=== PATIENT | female | born 1955 | race Hispanic/Latino ===

== ENCOUNTER → 2022-09-05 | Outpatient (CLI) | payer MEDICARE ==
[2022-09-05 13:16] LABS: ALBUMIN 3.7 g/dL (3.5-5.0); CREATININE 0.8 mg/dL (0.5-1.5); POTASSIUM 4.4 mmol/L (3.5-5.1)
== END | disposition home or self-care (01) ==
LOC: LAB 08:59
PROVIDERS: ATTEND Internal Medicine Cardiovascular Disease
DX: I10 Essential (primary) hypertension (principal)
CPT/HCPCS: 36415; 80053

== ENCOUNTER → 2022-09-21 | Outpatient (CLI) | payer MEDICARE ==
[~2022-09-21] MED LIST: IOHEXOL 350 MG/ML 100ML INFUS..BTL IV ONE
== END | disposition home or self-care (01) ==
LOC: EDUNIT# 07-18 11:30 → RAH 10:55
PROVIDERS: ATTEND Internal Medicine Cardiovascular Disease
DX: I10 Essential (primary) hypertension (principal)
CPT/HCPCS: 74175; Q9967

== ENCOUNTER → 2023-06-13 | Outpatient (CLI) | payer MEDICARE ==
[~2023-06-13] MED LIST changes: -IOHEXOL 350 MG/ML 100ML INFUS..BTL IV ONE; +REGADENOSON 0.4 MG/5 ML PF SYG IVP ONE
== END | disposition home or self-care (01) ==
LOC: SHCH 08:46
PROVIDERS: ATTEND Internal Medicine Cardiovascular Disease
DX: I10 Essential (primary) hypertension (principal); R06.09 Other forms of dyspnea
CPT/HCPCS: 78452; 96374; 93017; J2785; A9500 ×2

== ENCOUNTER → 2024-01-23 | Outpatient (CLI) | payer MEDICARE, MEDICAID ==
[2024-01-23 12:28] LABS: ALBUMIN 3.6 g/dL (3.5-5.0); BILIRUBIN,TOTAL 0.5 mg/dL (0.2-1.0); CREATININE 0.7 mg/dL (0.5-1.0); MAGNESIUM 2.1 mg/dL (1.80-2.40); POTASSIUM 4.2 mmol/L (3.5-5.1); T4 (THYROXINE) 9.6 ug/dL (4.7-13.3); THYROID STIMULATING HORMONE 2.55 uIU/mL (0.36-3.74); TOTAL PROTEIN, SERUM 7.1 g/dL (6.0-8.3)
== END | disposition home or self-care (01) ==
LOC: LAB 08:24
PROVIDERS: ATTEND Internal Medicine Cardiovascular Disease
DX: I10 Essential (primary) hypertension (principal); R06.00 Dyspnea, unspecified
CPT/HCPCS: 36415; 80053; 83735; 83880; 84436; 84443; 84479

== ENCOUNTER → 2024-01-31 | Outpatient (CLI) | payer MEDICARE, MEDICAID ==
[~2024-01-31] MED LIST changes: +METOPROLOL TARTRATE 1 MG/ML 5ML VIAL IV ONE; -REGADENOSON 0.4 MG/5 ML PF SYG IVP ONE
== END | disposition home or self-care (01) ==
LOC: RAH 11:20
PROVIDERS: ATTEND Internal Medicine Cardiovascular Disease
DX: K44.9 Diaphragmatic hernia without obstruction or gangrene (principal); R07.9 Chest pain, unspecified; M47.815 Spondylosis without myelopathy or radiculopathy, thoracolumbar region
CPT/HCPCS: 75574; J3490

== ENCOUNTER → 2024-02-21 | Outpatient (CLI) | payer MEDICARE, MEDICAID | END | disposition home or self-care (01) | LOC: SHCH 13:21 | PROVIDERS: ATTEND Internal Medicine Cardiovascular Disease | DX: R07.9 Chest pain, unspecified (principal); I73.9 Peripheral vascular disease, unspecified; I65.23 Occlusion and stenosis of bilateral carotid arteries | CPT/HCPCS: 93880; 93925 ==

== ENCOUNTER → 2024-03-30 | Outpatient (CLI) | payer MEDICARE | END | disposition home or self-care (01) | LOC: SHCH 13:37 | PROVIDERS: ATTEND Internal Medicine Cardiovascular Disease | DX: I87.2 Venous insufficiency (chronic) (peripheral) (principal) | CPT/HCPCS: 93970 ==

== ENCOUNTER → 2024-07-29 | Outpatient (CLI) | payer MEDICARE ==
--- NOTE | 2024-07-30 17:47 | HMCSR ---
APPROVED REPORT Right Lower Extremity Venous Study for DVT. Indications s/p Varithea Right GSV 07/26/2024 Vein Imaging CFV (R): Normal flow, augmentation and compression. No evidence of DVT. 11.6mm 1267ms of reflux. SFJ (R): Normal flow, augmentation and compression. No evidence of DVT. FEM (R): Normal flow, augmentation and compression. No evidence of DVT. POP (R): Partially Compressible DFV (R): Normal flow, augmentation and compression. No evidence of DVT. PTV (R): Non-Compressible Peroneals (R): Normal flow, augmentation and compression. No evidence of DVT. Technologist Impression Partially compressibility in the distal Popliteal vein with non compressibility in the proximal PTVs. GSV is closed from mid thigh to distal thigh and proximal calf to distal calf. Conclusion Successful ablation to greater saphenous vein Partially compressible posterior tibial vein which may be indicative of subacute thrombosis Conclusion Successful ablation to greater saphenous vein Partially compressible posterior tibial vein which may be indicative of subacute thrombosis
== END | disposition home or self-care (01) ==
LOC: SHCH 09:42
PROVIDERS: ATTEND Internal Medicine Cardiovascular Disease
DX: Z09 Encounter for follow-up examination after completed treatment for conditions other than malignant neoplasm (principal); I87.2 Venous insufficiency (chronic) (peripheral)
CPT/HCPCS: 93971

== ENCOUNTER → 2024-09-14 | Outpatient (CLI) | payer MEDICARE ==
--- NOTE | 2024-09-16 08:00 | HMCSR ---
APPROVED REPORT Bilateral Lower Extremity Venous Study for DVT., Venous Competence. Indications i87.1, i87.2 Vein Imaging CFV (R): Normal flow, augmentation and compression. No evidence of DVT. 12.0mm 1067ms of reflux. SFJ (R): Normal flow, augmentation and compression. No evidence of DVT. FEM (R): Normal flow, augmentation and compression. No evidence of DVT. POP (R): Normal flow, augmentation and compression. No evidence of DVT. 2772ms of reflux. DFV (R): Normal flow, augmentation and compression. No evidence of DVT. PTV (R): Normal flow, augmentation and compression. No evidence of DVT. Peroneals (R): Normal flow, augmentation and compression. No evidence of DVT. CFV (L): Normal flow, augmentation and compression. No evidence of DVT. 13.6mm 733ms of reflux. SFJ (L): Normal flow, augmentation and compression. No evidence of DVT. FEM (L): Normal flow, augmentation and compression. No evidence of DVT. POP (L): Normal flow, augmentation and compression. No evidence of DVT. DFV (L): Normal flow, augmentation and compression. No evidence of DVT. PTV (L): Normal flow, augmentation and compression. No evidence of DVT. Peroneals (L): Normal flow, augmentation and compression. No evidence of DVT. Technologist Impression Deep veins of the bilateral lower extremities appear patent and compressible without thrombus. Deep venous reflux noted in the RCFV. Superficial venous insufficiency noted in the accessory RGSV RGSV junction 7.0mm 967ms thigh 3.2mm 4208ms (comes off occluded GSV) knee 2.7mm 2850ms calf - not seen RSSV prox 1.9mm 0.0ms mid 2.1mm 0.0ms LGSV junction 7.0mm 0.0ms thihg - not seen knee - not seen calf 1.8mm 0.0ms LSSV not seen Conclusion Severe deep venous reflux noted Severe superficial venous reflux noted of duplicate right greater saphenous vein Consider formal venography with intravascular ultrasound clinically indicated Conclusion Severe deep venous reflux noted Severe superficial venous reflux noted of duplicate right greater saphenous vein Consider formal venography with intravascular ultrasound clinically indicated
== END | disposition home or self-care (01) ==
LOC: SHCH 12:52
PROVIDERS: ATTEND Internal Medicine Cardiovascular Disease
DX: I87.2 Venous insufficiency (chronic) (peripheral) (principal); I87.1 Compression of vein
CPT/HCPCS: 93970

== ENCOUNTER → 2024-10-03 | Outpatient (CLI) | payer MEDICARE ==
[2024-10-03 12:18] LABS: CREATININE 0.6 mg/dL (0.5-1.0); POTASSIUM 4.4 mmol/L (3.5-5.1)
== END | disposition home or self-care (01) ==
LOC: LAB 10:06
PROVIDERS: ATTEND Internal Medicine Cardiovascular Disease
DX: I10 Essential (primary) hypertension (principal)
CPT/HCPCS: 36415; 80048

== ENCOUNTER 2024-12-03 06:02 | Day surgery (SDC) | payer MEDICARE ==
[2024-11-27 11:28] LABS: BASOPHILS # (AUTO) 0.03 K/uL (0.00-0.20); BASOPHILS % (AUTO) 0.5 % (0.0-5.0); EOSINOPHILS # (AUTO) 0.08 K/uL (0.00-0.70); EOSINOPHILS % (AUTO) 1.4 % (0.0-8.0); HEMATOCRIT 41.9 % (36-48); IMMATURE GRANULOCYTE ABSOLUTE 0.01 K/uL (0-1); LYMPHOCYTES # (AUTO) 1.7 K/uL (1.0-4.8); MEAN CORPUSCULAR HEMOGLOBIN 28.8 pg (27.0-33.0); MEAN CORPUSCULAR HGB CONC 32.9 g/dL (32.0-36.0); MEAN CORPUSCULAR VOLUME 87.5 fL (79-99); MONOCYTES # (AUTO) 0.5 K/uL (0.1-1.0); MONOCYTES % (AUTO) 8.2 % (3.0-13.0); NEUTROPHILS # (AUTO) 3.4 K/uL (1.8-7.7); NEUTROPHILS % (AUTO) 59.7 % (40.0-77.0); PLATELET COUNT (AUTO) 324 K/uL (130-400); RED BLOOD CELL COUNT(AUTO) 4.79 MIL/uL (4.00-5.50); RED CELL DISTRIBUTION WIDTH 14.7 % (11.0-15.5); WHITE BLOOD COUNT (AUTO) 5.6 K/uL (4.8-10.8)
[2024-11-27 11:52] LABS: CREATININE 0.9 mg/dL (0.5-1.0); POTASSIUM 4.3 mmol/L (3.5-5.1)
[2024-11-27 12:05] VITALS: BP 152/59; PULSE 77; RESP 16; TEMP 97.1
[2024-11-27 12:12] LABS: PROTHROMBIN TIME 10.6 SEC (9.6-11.6)
[2024-12-03] VITALS (8 sets, daily range): BP systolic 117–133; BP diastolic 57–63; PULSE 72–81; RESP 13–18; TEMP 97.4–97.9
[~2024-12-03] VITALS: Ht 152.4 cm; Wt 75.3 kg
[~2024-12-03 06:02] MED LIST changes: +ACAR50TA5 PO; +ALBU18HF7 IH; +DEXL30CA3 PO; +FAMO40TA7 PO; +FERR-82 PO; +FLUT15.845 NS; +FLUT1BLS15 IH; +GABA-529 PO; +LOSA25TA41 PO; +MAGNESIUM PO; +MECL-226 PO; +MELO-108 PO; -METOPROLOL TARTRATE 1 MG/ML 5ML VIAL IV ONE; +MONT-39 PO; +OXYB5TAB20 PO; +PHEN15CA61 PO; +SEMA1PEN3 SQ; +SUCR1ORA15 PO; +TRAM-543 PO; +TYLENOL ARTHRITIS PO; +VITAMIN B12 PO
[2024-12-03] MEDS ORDERED: HEParin 10,000 UNIT/10ML (1,000 UNIT/ML) VIAL ONE (07:06)
[2024-12-03] MEDS ORDERED: IOHEXOL 350 MG/ML 100ML INFUS..BTL IV ONE (07:06)
[2024-12-03] MEDS ORDERED: NITROGLYCERIN 50MG VIAL ONE (07:06)
[2024-12-03] MEDS ORDERED: LIDOCAINE HCL 400MG/20ML VIAL ONE (07:06)
[2024-12-03] MEDS ORDERED: HEParin-NS 1,000 UNIT/500 ML 1,000 ML IV ONE (07:06)
[2024-12-03] MEDS ORDERED: IODIXANOL 320 MG/ML 100 ML VIAL ONE (07:19)
[2024-12-03] MEDS ORDERED: FENTanyl CITRate PF 50 MCG/1 ML 2ML VIAL ONE (07:32)
[2024-12-03] MEDS ORDERED: MIDAZOLAM HCL 1 MG/ML 2ML VIAL ONE ×2 (07:32→08:00)
--- NOTE | 2024-12-03 08:26 | PRN ---
Procedure Note INDICATION FOR PROCEDURE: [] Iliac vein compression Venous insufficiency PROCEDURE: [] Conscious sedation Left common femoral vein sheath placement 8 Bengali Bilateral common femoral venogram Intravascular ultrasound of IVC, bilateral common iliac external iliac common femoral veins DATE OF PROCEDURE: December 03, 2024 PLATFORM MILL SUPERVISOR: Henry Butcher MD, F.A.C.C. PROCEDURE NOTE: [] Patient was electively brought to catheterization suite and prepped and draped in sterile fashion. An IV was started if not already in place and both groins were exposed for venous access. 2% lidocaine was used for local anesthesia and then a micro puncture kit was used to gain access and once free flow blood was seen modified Seldinger technique was utilized to place an 8 Bengali sheath into the left common femoral vein. Next a venogram was performed. Next a Glidewire was then placed in the IVC and an intravascular ultrasound catheter was then used to interrogate the IVC, left common iliac external iliac common femoral vein. Next IVUS catheter was removed and an Omni flush catheter was then placed over wire and used to direct the Glidewire to the right common femoral vein. Omni flush catheter was then advanced wire was removed and a venogram was performed. Next glidewire was placed back through Omni flush catheter Omni flush catheter was removed and then an IVUS catheter was then placed over wire and interrogation of the right common femoral vein external iliac vein and common iliac vein was then performed. Once procedure was completed equipment was removed sheath was removed and manual pressure was held and no complications occurred. 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
[2024-12-03] MEDS ORDERED: GLUCAGON 1MG KIT 1 MG ML IM PRN (08:30)
[2024-12-03] MEDS ORDERED: DEXTROSE 50%-WATER 50 ML DISP.SYRIN IV PRN (08:30)
[2024-12-03] MEDS ORDERED: INSULIN humuLIN R 100 UNIT/ML 3ML SQ SCH (11:30)
== END 2024-12-03 10:40 | disposition home or self-care (01) ==
LOC: DAH 06:02
PROVIDERS: ATTEND Internal Medicine Cardiovascular Disease
DX: I87.1 Compression of vein (principal); I87.2 Venous insufficiency (chronic) (peripheral); I70.90 Unspecified atherosclerosis; I10 Essential (primary) hypertension; E78.5 Hyperlipidemia, unspecified; E66.01 Morbid (severe) obesity due to excess calories; F41.9 Anxiety disorder, unspecified; F32.A Depression, unspecified; M79.7 Fibromyalgia; Z68.32 Body mass index [BMI] 32.0-32.9, adult; Z79.01 Long term (current) use of anticoagulants; Z79.899 Other long term (current) drug therapy
CPT/HCPCS: 80048; 85025; 85610; 85730; 36415; 75822; 36012; 37252; 37253 ×5; 82948; C1894 ×2; C1753; C1769; J3010; J3490; J2250 ×2; J1644; Q9967; A4215; A4222; A4221; A4216; A6206; A4606; A4223 ×3; 99156; 99157

== ENCOUNTER 2025-02-06 05:47 | Day surgery (SDC) | payer MEDICARE, MEDICAID ==
[2025-02-03 09:48] LABS: BASOPHILS # (AUTO) 0.04 K/uL (0.00-0.20); BASOPHILS % (AUTO) 0.8 % (0.0-5.0); EOSINOPHILS # (AUTO) 0.08 K/uL (0.00-0.70); EOSINOPHILS % (AUTO) 1.5 % (0.0-8.0); LYMPHOCYTES % (AUTO) 38.2 % (21.0-51.0); MEAN CORPUSCULAR HEMOGLOBIN 30.7 pg (27.0-33.0); MEAN CORPUSCULAR HGB CONC 33.8 g/dL (32.0-36.0); MEAN CORPUSCULAR VOLUME 90.7 fL (79-99); MONOCYTES # (AUTO) 0.5 K/uL (0.1-1.0); NEUTROPHILS # (AUTO) 2.7 K/uL (1.8-7.7); NEUTROPHILS % (AUTO) 50.5 % (40.0-77.0); PLATELET COUNT (AUTO) 289 K/uL (130-400); WHITE BLOOD COUNT (AUTO) 5.2 K/uL (4.8-10.8)
[2025-02-03 09:58] LABS: CREATININE 0.7 mg/dL (0.5-1.0); INR 0.98 (0.85-1.15); POTASSIUM 4.5 mmol/L (3.5-5.1); PROTHROMBIN TIME 10.4 SEC (9.6-11.6)
[2025-02-03 10:00] LABS: PARTIAL THROMBOPLASTIN TIME 26.3 SEC (26.3-35.5)
[2025-02-03 10:13] LABS: B-TYPE NATRIURETIC PEPTIDE 7 pg/mL (0-100)
[2025-02-03 10:19] VITALS: BP 125/54; PULSE 71; RESP 17; TEMP 97.2
[~2025-02-06] VITALS: Ht 152.4 cm; Wt 71.4 kg
[2025-02-06] VITALS (8 sets, daily range): BP systolic 115–142; BP diastolic 49–78; PULSE 66–79; RESP 11–18; TEMP 97.3–97.4
[~2025-02-06 05:47] MED LIST changes: -ALBU18HF7 IH; +BISA-151 PO; +CHOL100040 PO; -DEXL30CA3 PO; +DEXL60CA3 PO; +IBUP-2077 PO; +LACT10SO76 PO; +MPAP PO; +URSO300C4 PO
[2025-02-06] MEDS: 0.9%NACL 1000ML 1,000 ML IV SCH (07:04)
[2025-02-06] MEDS ORDERED: LIDOCAINE HCL 1% 20 ML VIAL ONE (07:12)
[2025-02-06] MEDS ORDERED: IODIXANOL 320 MG/ML 100 ML VIAL ONE (07:12)
[2025-02-06] MEDS ORDERED: HEParin 10,000 UNIT/10ML (1,000 UNIT/ML) VIAL ONE ×2 (07:15)
[2025-02-06] MEDS ORDERED: LIDOCAINE HCL 400MG/20ML VIAL ONE (07:17)
[2025-02-06] MEDS ORDERED: HEParin-NS 1,000 UNIT/500 ML 1,000 ML IV ONE (07:18)
[2025-02-06] MEDS ORDERED: FENTanyl CITRate PF 50 MCG/1 ML 2ML VIAL ONE (07:19)
[2025-02-06] MEDS ORDERED: MIDAZOLAM HCL 1 MG/ML 2ML VIAL ONE ×2 (07:19→08:00)
[2025-02-06] MEDS ORDERED: ASPIRIN 81 MG EC TAB ONE (08:36)
[2025-02-06] MEDS ORDERED: cloPIDOgrel 300MG TAB ONE (08:36)
--- NOTE | 2025-02-06 08:51 | PRN ---
Procedure Note INDICATION FOR PROCEDURE: [] Critical iliac vein compression bilateral PROCEDURE: [] Conscious sedation Bilateral common femoral vein sheath placement Bilateral common femoral venogram Bilateral intravascular ultrasound of IVC, common iliac, external iliac, common femoral veins 14 mm x 150 mm Medtronic venous self expanding stent to left common iliac and external iliac vein 14 mm x 100 mm Medtronic venous self expanding stent to right common and external iliac vein DATE OF PROCEDURE: February 06, 2025 TORPEDO WORKER: [email or web address] PROCEDURE NOTE: [] Patient was electively brought to catheterization suite and prepped and draped in sterile fashion. An IV was started if not already in place and both groins were exposed for venous access. 2% lidocaine was used for local anesthesia bilaterally and micro puncture kit was used to gain access and once free flow blood was seen modified Seldinger technique was utilized to place a 9 Afghan sheath into bilateral common femoral veins. Next a venogram was performed. Next intravascular ultrasound interrogation of left and right iliac systems was performed. Appropriate landmarks were noted. Pre dilatation was done on the left common iliac vein with a 14 mm balloon deployed to rated pressure involving the left external iliac vein as well. These were done in sequential fashion. Next a 14 mm x 150 mm Medtronic venous self expanding stent was placed in the left common iliac and external iliac vein and a 14 mm x 100 mm Medtronic venous self expanding stent was then placed in the right common and external iliac vein and both were deployed simultaneously. Post stent dilatation was done at the ostia of each stent to rated pressure. At end of case Vascade closure system was used for right common femoral vein and manual pressure was used for the left common femoral vein. No complications occurred. FINDINGS: [] 52.3% compression of right common iliac vein 62.1% compression of left common iliac vein 62.3% compression left external iliac vein IMPRESSION: [] Successful bilateral common iliac and external iliac vein stent placement with the use of a 14 mm x 150 mm Medtronic venous self expanding stent to left common iliac and external iliac vein and a 14 mm x 100 mm Medtronic venous self expanding stent to right common and external iliac vein PLAN: [] Dual antiplatelet therapy for 30 days followed by clopidogrel for a total of 90 days. Continue home medications. Discharge home later today. HENRY RIVERA MD Feb 06, 2025 08:51
[2025-02-06] MEDS ORDERED: GLUCAGON 1MG KIT 1 MG ML IM PRN (09:00)
[2025-02-06] MEDS ORDERED: acetaMINOPHEN WITH coDEINE 1 TAB TAB PO PRN (09:00)
[2025-02-06] MEDS ORDERED: DEXTROSE 50%-WATER 50 ML DISP.SYRIN IV PRN (09:00)
[2025-02-06] MEDS: acetaMINOPHEN WITH coDEINE 1 TAB TAB PO PRN (09:16)
--- NOTE | 2025-02-06 09:30 | NUR ---
URINARY: VOIDED 300CC YELLOW COLOR URINE ON BEDPAN WITHOUT DIFFICULTY
== END 2025-02-06 10:55 | disposition home or self-care (01) ==
LOC: DAH 05:47
PROVIDERS: ATTEND Internal Medicine Cardiovascular Disease
DX: I87.1 Compression of vein (principal); I87.2 Venous insufficiency (chronic) (peripheral); Z79.01 Long term (current) use of anticoagulants; E66.9 Obesity, unspecified; I83.93 Asymptomatic varicose veins of bilateral lower extremities; E78.5 Hyperlipidemia, unspecified; J45.909 Unspecified asthma, uncomplicated; M19.90 Unspecified osteoarthritis, unspecified site; M79.7 Fibromyalgia; F41.9 Anxiety disorder, unspecified; F32.A Depression, unspecified; Z68.33 Body mass index [BMI] 33.0-33.9, adult; Z88.0 Allergy status to penicillin; Z90.710 Acquired absence of both cervix and uterus; Z98.84 Bariatric surgery status; Z90.49 Acquired absence of other specified parts of digestive tract; Z79.899 Other long term (current) drug therapy
CPT/HCPCS: 80048; 83880; 85025; 85610; 85730; 36415; 37238; 99156; 99157 ×2; 37239; 37252; 37253 ×5; 82948 ×2; C1876 ×2; C1769; C1894 ×3; C1725; C1760; C1753; J3010; J3490; J7030; J1644 ×3; J2250 ×2; Q9967; A4215; A4222; A4221; A4663; A4216; A4606; A4223 ×3; 37236; 37237